=== PATIENT | male | born 1975 | race Caucasian/White ===

== ENCOUNTER 2023-11-12 12:38 | Emergency (ER) | payer MEDICAID, SELFPAY ==
--- NOTE | 2023-11-12 12:40 | ECG_ITS ---
[facility] Test Date: 2023-11-12 Pat Name: Frantz Armstrong Department: Room: Gender: Male [employer]: : 1975 Requested By: Angelito Guidry Order Number: [id number] Юлия MD: Rekha Elena M.D. Measurements Intervals [place] Rate: 62 P: 48 MD: 173 QRS: 58 QRSD: 100 T: 47 QT: 377 QTc: 385 Interpretive Statements SINUS RHYTHM No previous ECG available for comparison Possible old septal VT Electronically Signed On 11-12-2023 16:30:43 CDT by Rekha Elena M.D. [id number]
[2023-11-12 12:52] VITALS: BP 134/82; PULSE 78; RESP 16; TEMP 36.9; O2SAT 97; BMI 21.7
[2023-11-12 13:41] LABS: Basophils # 0.1 10^3/uL (0.0-0.1); Basophils % 0.7 %; Eosinophils # 0.1 10^3/uL (0.0-0.8); Eosinophils % 0.6 %; Hematocrit 43.1 % (37-53); Lymphocytes # 2.3 10^3/uL (0.8-4.8); Lymphocytes % 21.8 %; Mean Corpuscular HGB Conc 33.9 g/dL (30-55); Mean Corpuscular Hemoglobin 30.2 pg (27-33); Mean Platelet Volume 8.5 fL (7.4-10.4); Monocytes # 0.6 10^3/uL (0.2-0.9); Monocytes % 5.8 %; Neutrophils # 7.64 10^3/uL (1.8-7.7); Neutrophils % 70.9 %; Nucleated Red Blood Cells % 0 %; Platelet Count 219 10^3/cmm (157-399); Red Blood Count 4.84 10^6/uL (3.85-5.65); Red Cell Distribution Width 11.9 % (12.1-15.1); White Blood Count 10.75 10^3/uL (3.29-11.43)
[2023-11-12 14:00] LABS: Alanine Aminotransferase 25 U/L (0-41); Albumin Level 4.6 g/dL (3.5-5.2); Alkaline Phosphatase 56 U/L (40-130); Anion Gap 14.8 (5-19); Aspartate Amino Transferase 22 U/L (0-40); Blood Urea Nitrogen 17 mg/dL (6-20); Calcium 9.9 mg/dL (8.5-10.5); Carbon Dioxide 28 mmol/L (22-29); Chloride 106 mmol/L (98-107); Globulin 2.8 g/dL (1.3-4.6); Glomerular Filtration Rate 80.4 mL/min (90-130); Glucose 98 mg/dL (65-115); Osmolality Calculated 300 mOsm/kg (285-295); Potassium 4.8 mmol/L (3.5-5.1); Sodium 144 mmol/L (136-145); Total Bilirubin 0.3 mg/dL (0.15-1.2); Total Protein 7.4 g/dL (6.6-8.7)
[2023-11-12 16:20] VITALS: BP 144/83; PULSE 69; O2SAT 98
== END 2023-11-12 16:21 | disposition left against medical advice (07) ==
PROVIDERS: Emergency Medicine; Emergency Provider Family Medicine
DX: Z53.21 Procedure and treatment not carried out due to patient leaving prior to being seen by health care provider (principal)
CPT/HCPCS: 36415; 80053; 85025; 93005; 99284

== ENCOUNTER 2024-11-18 08:55 | Day surgery (SDC) | payer MEDICAID, SELFPAY ==
[2024-11-18 09:11] VITALS: BP 117/82; PULSE 54; RESP 18; TEMP 36.6; O2SAT 98; BMI 22.4
[2024-11-18] MEDS: sodium chloride 0.9% 1,000 ML 15 ML IV (09:18)
--- NOTE | 2024-11-18 10:33 | ANES.PREANE2 ---
Pre-Anesthetic Assessment Height/Weight: Height 1.85 m Weight 77.111 kg Temp Pulse Resp BP Pulse Ox O2 Del Method 97.8 F 54 L 18 117/82 98 Room Air 11/18/24 09:11 11/18/24 09:11 11/18/24 09:11 11/18/24 09:11 11/18/24 09:11 11/18/24 09:11 Preop Diagnosis: Screen Operation Date: 11/18/24 09:30 Proposed Procedures p Colonoscopy 46364, G0121, Z12.11(Not Applicable) - Carlos Singh MD Was Beta Keith taken within 24 hours: N/A Was Clonidine taken within 24 hours: N/A Last intake: Intake Last Liquid Date 11/17/24 Last Liquid Time 22:30 Last Solid Date 11/16/24 Last Solid Time 22:30 Social No alcohol and No tobacco Quit drinking alcohol in August, a few drinks occasionally prior Exam alert, oriented x 3, clear to auscultation bilaterally and regular rate & rhythm Airway Cervical ROM: within normal limits Mallampati: Class II Dentition: loose Comments: Comments: Full upper denture, loose lower incisor Pulmonary None reported CV/HEM None reported Pt. states was told he had HTN, never prescibed medication and has since quit drinking. None reported Hepatic None reported GI None reported Metabolic None reported Neuropsych None reported Anesthetic Plan ASA status: 1 Risk of > 500 ml blood loss (7ml/kg in children): No Medications/Allergies Home Medications ?Medication ?Instructions ?Recorded ?Confirmed ?Last Taken ?Type No Known Home Medications 11/10/24 11/12/24 Unknown History Allergies Allergy/AdvReac Type Severity Reaction Status Date / Time No Known Allergies Allergy Verified 11/12/24 11:51 Current Medications Generic Name Dose Route Start Last Admin Trade Name Freq PRN Reason Stop Dose Admin Sodium Chloride 1,000 mls @ 15 mls/hr 11/18/24 09:11 11/18/24 09:18 Sodium Chloride 0.9% IV 11/19/24 09:10 15 mls/hr .Q24H PRN Administration COLONOSCOPY FLUIDS PFSH Anesthesia Social History Smoking and tobacco/nicotine status: never used tobacco/nicotine Data Anesthesia Cardiac Studies: No Data to Display
--- NOTE | 2024-11-18 11:24 | W.PM.OPSUD ---
Surgery/Procedure H&P Update DATE OF PROCEDURE: November 18, 2024 DATE H&P PERFORMED: 11/10/24 H&P UPDATE INFORMATION: I have reviewed H&P completed within last 30 days, I have examined patient prior to procedure and No changes to prior documentation PREOP DIAGNOSIS: Screen PLANNED PROCEDURE: Operation Date: 11/18/24 09:30 Proposed Procedures p Colonoscopy 77644, G0121, Z12.11(Not Applicable) - Carlos Singh MD
[2024-11-18 12:18] VITALS: BP 139/83; PULSE 71; RESP 16; TEMP 36.6; O2SAT 98
[2024-11-18 12:28] VITALS: BP 143/89; PULSE 54; RESP 16; O2SAT 94
[2024-11-18 12:52] VITALS: BP 139/88; PULSE 52; RESP 16; O2SAT 97
[2024-11-18 13:01] VITALS: BP 114/61; PULSE 57; RESP 16; O2SAT 100
== END 2024-11-18 13:20 | disposition home or self-care (01) ==
PROVIDERS: PCP Nurse Practitioner Family; Visit Provider Student in an Organized Health Care Education/Training Program
PROC: 0DJD8ZZ Inspection of Lower Intestinal Tract, Via Natural or Artificial Opening Endoscopic (ICD-10-PCS; CPT 45378; principal; 2024-11-18 09:30)
DX: Z12.11 Encounter for screening for malignant neoplasm of colon (principal); K62.1 Rectal polyp; D12.5 Benign neoplasm of sigmoid colon
CPT/HCPCS: 45380; 45385; 88305; J2704; J7030